=== PATIENT | female | born 2000 | race Hispanic/Latino ===

== ENCOUNTER 2024-01-13 11:01 | Outpatient (CLI) | payer OTHER, SELFPAY ==
[2024-01-13 12:40] LABS: Basophils Absolute Auto 0.1 K/mm3 (0.0-0.1); Eosinophils Absolute Auto 0.2 K/mm3 (0-0.3); Eosinophils Percent Auto 1.9 % (0-4.4); Hematocrit 40.3 % (37.0-47.0); Hemoglobin 13.1 g/dL (12.0-15.0); Immature Granulocyte Absolute 0.08 K/mm3 (0.00-0.031); Immature Granulocyte Percent A 0.6 % (0-0.5); Lymphocytes Absolute Auto 2.15 K/mm3 (0.9-3.2); Lymphocytes Percent Auto 17.1 % (18.3-44.2); Mean Corpuscular HGB Conc 32.5 g/dl (32-36); Mean Corpuscular Hemoglobin 27.9 pg (26-34); Mean Corpuscular Volume 85.7 fl (80-100); Mean Platelet Volume 10.2 fl (7.4-10.4); Monocytes Absolute Auto 0.6 K/mm3 (0.1-0.6); Monocytes Percent Auto 4.9 % (2.6-8.5); Neutrophils Absolute Auto 9.4 K/mm3 (1.3-6.7); Neutrophils Percent Auto 74.5 % (45.5-73.1); Platelet Count Result 407 k/mm3 (150-375); White Blood Count 12.6 K/mm3 (4.5-10.0)
[2024-01-13 12:55] LABS: Glucose 1 Hour PP 50gm Dose 117 mg/dL
[2024-01-13 13:31] LABS: HIV 1/2 Ab P24 Ag Result Negative (Negative)
[2024-01-13 14:06] LABS: Rubella IgG Antibody 19.1 IU/ML
[2024-01-13 14:13] LABS: Rapid Plasma Reagin Non-Reactive (NonReactive)
[2024-01-13 15:08] LABS: Hepatitis B Surface Antigen Negative (Negative)
[2024-01-15 15:21] LABS: CMV IgG Antibody <0.60 U/mL (<0.60)
== END 2024-01-13 11:02 | disposition home or self-care (01) ==
PROVIDERS: Visit Provider Obstetrics & Gynecology
DX: N91.2 Amenorrhea, unspecified (principal)
CPT/HCPCS: 36415; 82947; 84702; 85025; 86592; 86644; 86703; 86747; 86762; 86787; 86850; 86900; 86901; 87086; 87340; G0432

== ENCOUNTER 2024-03-01 01:18 | Emergency (ER) | payer OTHER, SELFPAY ==
[2024-03-01 01:21] VITALS: BP 155/86; PULSE 107; RESP 14; TEMP 36.8; O2SAT 100
[2024-03-01 02:36] LABS: Basophils Absolute Auto 0.1 K/mm3 (0.0-0.1); Basophils Percent Auto 0.9 % (0.2-1.2); Eosinophils Absolute Auto 0.4 K/mm3 (0-0.3); Eosinophils Percent Auto 3.1 % (0-4.4); Hematocrit 36.3 % (37.0-47.0); Hemoglobin 11.8 g/dL (12.0-15.0); Immature Granulocyte Absolute 0.14 K/mm3 (0.00-0.031); Lymphocytes Absolute Auto 2.49 K/mm3 (0.9-3.2); Lymphocytes Percent Auto 18.2 % (18.3-44.2); Mean Corpuscular HGB Conc 32.5 g/dl (32-36); Mean Corpuscular Hemoglobin 28.4 pg (26-34); Mean Corpuscular Volume 87.5 fl (80-100); Monocytes Percent Auto 7.2 % (2.6-8.5); Neutrophils Absolute Auto 9.5 K/mm3 (1.3-6.7); Neutrophils Percent Auto 69.6 % (45.5-73.1); Platelet Count Result 390 k/mm3 (150-375); Red Blood Count 4.15 M/mm3 (4.2-5.4); White Blood Count 13.7 K/mm3 (4.5-10.0)
--- NOTE | 2024-03-01 02:44 | ED.PREGNANCY ---
HPI - General Chief complaint: Vaginal Bleeding Stated complaint: 5 months preg, vaginal bleeding Time Seen by Provider: 03/01/24 02:07 History of Present Illness HPI Narrative: Patient is a 24-year-old female who presents the emergency department this evening complaining of vaginal bleeding. Patient is approximately 20 weeks states that this is her 2nd . Patient had a miscarriage at 5 months during her 1st and is concerned that the same thing is happening neck. Patient did have sexual intercourse this evening prior to bleeding. She states that the bleeding is not spotting but it is not heavy bleeding. Patient did note that when she used start in our emergency department she noted some blood clotting which she did not notice at home. She is currently denying any abdominal cramping or pain, denies any dysuria or hematuria and is currently denying any additional symptoms at this time. Patient sees an OBGYN through an outside facility. There are no other modifying, alleviating, or precipitating factors this time. Related Data Allergies Allergy/AdvReac Type Severity Reaction Status Date / Time No Known Allergies Allergy Verified 12/28/23 14:48 Review of Systems Review of Systems: All systems are reviewed and are negative unless stated otherwise in the HPI. [facility] Past Medical History Medical History Missed (05/23/23) 5 months gestation Family History Family History Sibling Breast cancer, Onset Age: 26 sister Other Diabetes mellitus Social History Social History Smoking status: Never smoker Tobacco type: cigarettes Second hand tobacco smoke exposure: No Alcohol intake: never Substance use: never Substance use type: does not use Do You Feel Safe in your Home?: Yes Lack of Transportation: No Lack of Food: Never True Current Housing: I Have Housing Concerned About Future Housing: No Difficulty Paying Gas/Electric Bills: No Difficulty Paying for Meds: No Currently Unemployed: No Education: High School Diploma/GED Difficulty w/ Childcare or Family Care: No Living arrangements: other Additional living arrangements comments: single Occupation/Education: occupation Additional occupation/education comments: [employer] Gender identity (if verbalized by the patient): Female Sexual Orientation (if Verbalized by the Patient): Straight or Heterosexual Exam Narrative: General: Alert, awake, afebrile, in no acute distress. HEENT: PERRL, no rhinorrhea, no post nasal drip, oropharynx clear. Neck: Trachea midline, no JVD, no lymphadenopathy. Cardiovascular: Regular rate and rhythm, no murmurs, rubs or gallops, no peripheral edema. Respiratory: Clear to auscultation bilaterally, no tachypnea, no wheezing, no rhonchi, no rubs, no respiratory distress. Abdomen: Soft, nontender, nondistended, no rebound, no guarding, no peritoneal signs. Musculoskeletal: No joint swelling or deformity, normal muscle tone. Skin: No rashes or petechia, no signs of infection. Psychiatric: Alert and oriented, normal behavior and judgment for situation. Neurological: Alert and oriented to person, place, and time. Follows all commands. No focal deficits, speech is clear and fluent. Course Vital Signs Vital signs: Vital Signs Temperature 98.2 F 03/01/24 01:21 Pulse Rate 107 H 03/01/24 01:21 Respiratory Rate 14 03/01/24 01:21 Blood Pressure 155/86 H 03/01/24 01:21 Pulse Oximetry 100 03/01/24 01:21 Oxygen Delivery Room Air 03/01/24 01:21 Temperature 98.2 F 03/01/24 01:21 Pulse Rate 107 H 03/01/24 01:21 Respiratory Rate 14 03/01/24 01:21 Blood Pressure 155/86 H 03/01/24 01:21 Pulse Oximetry 100 03/01/24 01:21 Oxygen Delivery Room Air 03/01/24 01:21
[2024-03-01 02:45] LABS: Alanine Aminotransferase 25 U/L (6-35); Albumin Level 3.9 g/dL (3.5-5.1); Alkaline Phosphatase 88 U/L (38-126); Anion Gap 8 mmol/L (4-12); Aspartate Amino Transferase 23 U/L (14-36); Bilirubin,Total 0.3 mg/dL (0.2-1.3); Blood Urea Nitrogen 7 mg/dL (7-17); Calcium 9.3 mg/dL (8.4-10.2); Carbon Dioxide 22 mmol/L (22-30); Chloride 107 mmol/L (98-107); Estimated CRCL calculation 174 ml/min; Estimated Glomerular Filt Rate > 60; Glucose 124 mg/dL (65-110); Potassium 3.2 mmol/L (3.4-5.0); Sodium 137 mmol/L (137-145)
--- NOTE | 2024-03-01 02:52 | PC.NURSE ---
OB contacted to perform heart tones on pt. GOLDEN Salomon to come down.
[2024-03-01 02:56] LABS: Bacteria Urine None Seen /hpf; Need Manual Microscopic Reviewed; Non Pathogenic Casts 0-2; RBC Urine 21-50 /hpf (0-2); Squamous Epithelial Cell Urine None Seen /hpf (Few); WBC Urine 0-5 /hpf (0-3)
[2024-03-01 02:59] LABS: Appearance Urine Cloudy (Clear); Bilirubin Urine Negative (Negative); Blood Urine 3+ (Negative); Glucose Urine UA Negative (Negative); Ketones Urine Negative (Negative); Leukocyte Esterase Ur Trace LEU/UL (Negative); Nitrate Urine Negative (Negative); Protein Urine 2+ mg/dL (Negative); Urobilinogen Urine 0.2 mg/dL (<2.0)
[2024-03-01 03:00] LABS: Color Urine Dark Yellow (Yellow); Specific Grav Ur 1.004 (1.001-1.035)
[2024-03-01 03:01] LABS: Add Urine Microscopic? YES
[2024-03-01] MEDS: POTASSIUM CHLORIDE 20 MEQ PACKET (FOR LIQUID) 40 MEQ PO (03:12)
[2024-03-01 04:47] VITALS: BP 142/79; PULSE 99; RESP 16; O2SAT 99
== END 2024-03-01 04:49 | disposition home or self-care (01) ==
PROVIDERS: Emergency Provider Emergency Medicine
DX: O20.0 Threatened abortion (principal); Z3A.20 20 weeks gestation of pregnancy; E87.6 Hypokalemia
CPT/HCPCS: 36415; 80053; 81001; 84702; 85025; 85461; 86850; 86900; 86901; 99283; A9270

== ENCOUNTER 2024-03-04 00:04 | Inpatient (IN) | payer OTHER, SELFPAY ==
[2024-03-04] VITALS (117 sets, daily range): BP systolic 109–161; BP diastolic 57–94; PULSE 49–126; TEMP 36.3–36.5; O2SAT 88–100; BMI 38.2; BMI 39.7
--- NOTE | 2024-03-04 00:46 | PC.NURSE ---
Called Dr. Cruz on pt, absent heart tones, and cramping. Dr. Cruz is on his way to evaluate pt.
--- NOTE | 2024-03-04 01:40 | PC.NURSE ---
Addendum entered by Zora Ta RN 03/04/24 09:59: Error in time, ultrasound at 0124. Original Note: Dr. Cruz at bedside with ultrasound and determined no heart tones present.
--- NOTE | 2024-03-04 01:43 | PM.IMHP ---
H&P: HPI History of Present Illness Date/Time: 03/04/24 01:43 Chief Complaint: vaginal bleeding Narrative: 24yo at 23w0d who presents with complaint of vaginal bleeding. Pt states she presented to the ER 3 days ago for bleeding after intercourse. Pt states they performed doppler of heart tones and told her there was a strong heart beat. Pt states she has continued to have spotting and dark brown discharge. She has not appreciated any movement. She denies any large gush of fluid. Pt has not had adequate care in this . She had one visit to establish care and has not followed up. Pt last was complicated by 19w demise. Pt had no care in that . 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 She denies any chronic medical illnesses. ` Review of Systems Review of Systems: All systems reviewed & are unremarkable except as noted in HPI and below PMFSH Past Medical History Medical History Missed (05/23/23) 5 months gestation Family History Family History Sibling Breast cancer, Onset Age: 26 sister Other Diabetes mellitus Social History Social History Smoking status: Never smoker Tobacco type: cigarettes Second hand tobacco smoke exposure: No Alcohol intake: never Substance use: never Substance use type: does not use Do You Feel Safe in your Home?: Yes Lack of Transportation: No Lack of Food: Never True Current Housing: I Have Housing Concerned About Future Housing: No Difficulty Paying Gas/Electric Bills: No Difficulty Paying for Meds: No Currently Unemployed: No Education: High School Diploma/GED Difficulty w/ Childcare or Family Care: No Living arrangements: other Additional living arrangements comments: single Occupation/Education: occupation Additional occupation/education comments: [employer] Gender identity (if verbalized by the patient): Female Sexual Orientation (if Verbalized by the Patient): Straight or Heterosexual Meds Home Medications and Allergies Allergies Allergy/AdvReac Type Severity Reaction Status Date / Time No Known Allergies Allergy Verified 12/28/23 14:48 Vital Signs Vital Signs - 24 hr 03/04/24 00:26 03/04/24 00:31 03/04/24 00:36 Pulse Rate Blood Pressure Pulse Oximetry 99 99 99 03/04/24 00:41 03/04/24 00:47 03/04/24 00:52 Pulse Rate Blood Pressure Pulse Oximetry 100 99 99 03/04/24 00:57 03/04/24 00:58 03/04/24 01:00 Pulse Rate 105 H 103 H Blood Pressure 134/78 120/71 Pulse Oximetry 99 03/04/24 01:02 03/04/24 01:07 03/04/24 01:12 Pulse Rate Blood Pressure Pulse Oximetry 100 100 100 03/04/24 01:17 03/04/24 01:22 03/04/24 01:27 Pulse Rate Blood Pressure Pulse Oximetry 98 99 99 03/04/24 01:30 03/04/24 01:31 03/04/24 01:32 Pulse Rate 102 H Blood Pressure 141/79 H Pulse Oximetry 96 88 L Exam Const: General: cooperative and comfortable Resp: Effort & Inspection: normal respiratory effort and able to speak in complete sentences Cardio: Rate: regular rate Rhythm: regular rhythm GI: Inspection: normal to inspection GI Palp: No abdominal tenderness and Yes Soft to palpation : External Female Exam: normal external appearance Speculum Exam - Vagina: vaginal bleeding Other: dark old blood throughout the vaginal vault, foot and parts in the vagina, no active bleeding Psych: Appearance: grossly normal Affect: normal affect Assessment and Plan Assessment and plan (1) IUFD at 20 weeks or more of gestation: Code(s): O36.4XX0 - Maternal care for intrauterine , not applicable or unspecified Status: Acute Assessment and Plan: 24 yo at 23w who presents with complaint of vaginal b
[2024-03-04] MEDS: HYDROcodone/acetaminophen (*CRX) 10-325 MG TABLET 1 TAB PO (02:22)
[2024-03-04 03:09] LABS: Basophils Absolute Auto 0.1 K/mm3 (0.0-0.1); Basophils Percent Auto 0.6 % (0.2-1.2); Eosinophils Absolute Auto 0.2 K/mm3 (0-0.3); Eosinophils Percent Auto 0.7 % (0-4.4); Hematocrit 36.2 % (37.0-47.0); Hemoglobin 11.8 g/dL (12.0-15.0); Immature Granulocyte Absolute 0.12 K/mm3 (0.00-0.031); Immature Granulocyte Percent A 0.6 % (0-0.5); Lymphocytes Absolute Auto 1.49 K/mm3 (0.9-3.2); Lymphocytes Percent Auto 7.2 % (18.3-44.2); Mean Corpuscular HGB Conc 32.6 g/dl (32-36); Mean Corpuscular Hemoglobin 28.4 pg (26-34); Mean Platelet Volume 10.3 fl (7.4-10.4); Monocytes Absolute Auto 1.2 K/mm3 (0.1-0.6); Monocytes Percent Auto 5.7 % (2.6-8.5); Neutrophils Absolute Auto 17.7 K/mm3 (1.3-6.7); Neutrophils Percent Auto 85.2 % (45.5-73.1); Platelet Count Result 403 k/mm3 (150-375); Red Blood Count 4.16 M/mm3 (4.2-5.4); Red Cell Distribution Width 14.7 % (11.5-14.5); White Blood Count 20.8 K/mm3 (4.5-10.0)
[2024-03-04 03:38] LABS: Free T4 Free Thyroxine 0.74 ng/mL (0.78-2.19)
--- NOTE | 2024-03-04 04:02 | PC.NURSE ---
Addendum entered by Zora Ta RN 03/04/24 10:01: Error in time, called at 0402. Original Note: Called Dr. Cruz to update on pt and fetus descending into vaginal canal, presence requested.
--- NOTE | 2024-03-04 04:05 | PC.NURSE ---
Called Dr. Cruz to update on pt and descending fetus into vaginal canal, presence requested.
[2024-03-04] MEDS: fentaNYL CITRATE INJ (*CRX) 100 MCG/2 ML VIAL IV PUSH (04:23)
[2024-03-04 04:46] LABS: Amphetamine Screen Urine Negative (Negative); Barbiturate Screen Urine Negative (Negative); Benzodiazepines Screen Urine Negative (Negative); Cannabinoid Screen Urine Positive (Negative); Cocaine Screen Urine Negative (Negative); Methadone Screen Urine Negative (Negative); Opiate Screen Urine Negative (Negative); Phencyclidine Screen Urine Negative (Negative)
[2024-03-04] MEDS: OXYTOCIN 30 UNITS/NS 500 ML 30 UNITS/500 ML BAG 999 UNITS IV CONT (04:52)
--- NOTE | 2024-03-04 04:58 | P.PCNOB_ITS ---
OB - Vaginal Delivery Note Procedure Delivery date: 03/04/24 Events: Breech Presentation, No Care and Other (IUFD) Induction method: None Route of delivery: Episiotomy description: None Laceration Description: None Quantitative Blood Loss (ml): 100 Anesthesia type: None Disposition: Floor Complications: No immediate complications Narrative: 24-year-old who presents at 23 weeks 0 days with IUFD. Fetus was noted to be in breech presentation. fluid was present within the vagina. Patient progressed to complete. Remainder of the fetus had noted to deliver into the vagina. Upon entering the room, the fetus had delivered to the mid abdomen. The remainder of the fetus delivered with 1 gentle contraction. Cord was clamped and fetus was given to nursery team for evaluation. The placenta delivered with gentle traction. The perineum was inspected and noted to be intact. Good hemostasis was observed. Bedside ultrasound was performed with good endometrial stripe observed. [place] Baby Date of : 03/04/24 Time of : 04:50 Weeks of gestation at delivery: 23 presentation: breech Placenta delivery description: Spontaneous score one minute: 0 score five minutes: 0 AMG Delivery Billing Delivery Delivery: Delivery Charge
[2024-03-04] MEDS: OXYTOCIN 30 UNITS/NS 500 ML 30 UNITS/500 ML BAG 125 UNITS IV CONT (05:40)
[2024-03-04] MEDS: LACTATED RINGERS 1,000 ML 125 ML IV CONT (06:29)
[2024-03-04] MEDS: ceFAZolin 2 GM/D5W 50 ML 2 GM/50 ML BAG IVPB (06:32)
--- NOTE | 2024-03-04 11:00 | PC.NURSE ---
[facility] director of player personnel at bedside with pt.
[2024-03-04 11:13] LABS: Hematocrit 35.3 % (37.0-47.0); Hemoglobin 11.3 g/dL (12.0-15.0)
[2024-03-04 11:57] LABS: HIV 1/2 Ab P24 Ag Result Negative (Negative)
[2024-03-04 12:11] LABS: Rubella IgG Antibody 16.8 IU/ML
[2024-03-04 12:40] LABS: Rapid Plasma Reagin Non-Reactive (NonReactive)
[2024-03-07 13:28] LABS: Toxoplasma IgG Antibody <7.20 IU/mL (<7.20)
[2024-03-07 13:30] LABS: Toxoplasma IgM Antibody <8.00 AU/mL (<8.00)
--- NOTE | 2024-03-08 08:51 | PM.OBDSVD ---
DS: Admitting Diagnosis Discharge Date 03/04/24 Admitting Diagnosis IUFD DS: Discharge Diagnosis Discharge Diagnosis (1) IUFD at 20 weeks or more of gestation: Code(s): O36.4XX0 - Maternal care for intrauterine , not applicable or unspecified Status: Acute (2) Vaginal delivery: Code(s): O80 - Encounter for full-term uncomplicated delivery Status: Acute OB - DS: Summary Hospital Course Hospital Course: 24-year-old who presents at 23 weeks and found to have IUFD. Patient was seen few days prior in the emergency room with complaint of vaginal bleeding. Patient had heart tones at that time. Patient feeling contractions on admission. Speculum exam was performed which showed parts in the vagina. No heart tones were noted by ultrasound. Patient was yoon on tocometer. Labor progressed and patient delivered vaginally. OB Procedures : None OB Procedures Intrapartum: Spontaneous Vag Delivery OB Procedures: : None Peripartum Data Infant Delivery Method: Natural Vaginal Laceration Description: None Episiotomy description: None complications: none Status at Discharge Functional status at discharge: independent ambulation Overall status at discharge: patient is back to baseline Time Spent with Patient Time attestation: Total time spent providing and/or coordinating discharge services: DS: Data Data Completed and Pending Completed studies during hospitalization: Pending at discharge 03/04/24 04:52 Surgical [PTH] Routine Labs on day of discharge: Labs from last 24 hours 03/04/24 03/04/24 10:40 02:27 HSV I Specific Ab <0.90 HSV II Specific Ab <0.90 Toxoplasma IgG Ab <7.20 Toxoplasma IgM Ab <8.00 Discharge Plan Discharge Discharging Clinician: Mauricio Gary Patient Disposition: Home, Self-Care Activity: other - see discharge instructions Diet: regular Discharge Instructions: Follow-Up: Call your Provider's office for an appointment to be seen in: Return to [facility] for a follow-up visit: Appointment Date/Time: at What to expect at your follow-up visit: Call [phone] if you are unable to keep your appointment time. EPISIOTOMY/PERINEAL CARE: * Until bleeding stops, use your irais bottle after urinating * Change your pad frequently throughout the day * You may take sitz baths several times a day (fill your bathtub with warm water and soak for 20 minutes.) Do NOT bathe in the water * No tub baths until seen by your physician - You may shower BLEEDING: * Each individual will experience vaginal bleeding, but it will vary with each situation and individual woman. * Vaginal bleeding will go thru cycles-from bright red, to pinkish to a white, creamy discharge. This is considered normal. You may also experience a brownish discharge which is also normal. DIET AND NUTRITION: * Eat at least 3 regular, well-balanced meals per day: include all 4 food groups daily. * You may prefer 6 small meals. * Drink 6-8 glasses of water or non-caffeinated beverages per day. * Loss of appetite is common with loss. We encourage you to try to eat; this will help with both your physical and emotional health. ACTIVITY: * Rest as much as possible during the day. * Do not exercise or lift anything heavier than 10 pounds (such as laundry or other children.) * Avoid stairs or driving as much as possible, especially if you are taking pain medication. * Do not put anything into the vagina. No douching, tampons, or sexual activity until seen and released by your physician. * Listen to your body, and do not do what is uncomfortable or painful. EMOTIONAL HEALTH: * This is a very difficult and sad time for you and your family, friends, and other children. It may be helpful to refer to the booklets on loss that you received. * It is okay to be sad and to cry. Denial, anger, an
[2024-03-08 08:54] LABS: CMV IgM Antibody <30.00 AU/mL (<30.00)
[2024-03-08 13:37] LABS: Anti Cardio Antibody IgM <2.0 MPL-U/mL (<20.0); Anti Cardiolipin Antibody IgA <2.0 APL-U/mL (<20.0); Anti Cardiolipin Antibody IgG <2.0 GPL-U/mL (<20.0)
[2024-03-09 16:05] LABS: CMV IgG Antibody <0.60 U/mL (<0.60)
[2024-03-10 06:01] LABS: Hexagonal Phase Confirm Positive (Negative)
[2024-03-10 06:45] LABS: Lupus dRVVT Screen 42 sec (<=45); PTT-LA Screen 45 sec (<=40)
== END 2024-03-04 15:47 | disposition home or self-care (01) | DRG 560 ==
PROVIDERS: Admitting Provider Student in an Organized Health Care Education/Training Program; Visit Provider Obstetrics & Gynecology
DX: O36.4XX0 Maternal care for intrauterine death, not applicable or unspecified (principal); Z37.1 Single stillbirth; O32.8XX0 Maternal care for other malpresentation of fetus, not applicable or unspecified; Z3A.23 23 weeks gestation of pregnancy
CPT/HCPCS: 36415; 80307; 83036; 84439; 84443; 85014; 85018; 85025; 85598; 85613; 85670; 85730; 86146; 86147; 86592; 86644; 86645; 86695; 86696; 86703; 86747; 86762; 86777; 86850; 86900; 86901; 88307; A9270; G0432; J0690; J2590; J3010; J7120